=== PATIENT | male | born 1955 | race Caucasian/White ===

== ENCOUNTER 2016-03-17 19:26 | Inpatient (IN) | payer OTHER ==
[2016-03-17] VITALS (176 sets, daily range): BP systolic 118; BP diastolic 68; PULSE 66; TEMP 97; O2SAT 98–100
[~2016-03-17 19:26] MED LIST: B-1100 MG PO; CEPHALEXIN500 M1 PO; FOLIC ACID 11 MG/TA1 PO; THERAGRAN1 TA1 PO
[2016-03-17 21:17] LABS: PH 6 (5-8); SQUAMOUS EPITHELIAL None Seen /hpf; URINE APPEARANCE Clear; URINE BACTERIA None Seen /hpf; URINE BILIRUBIN Negative (NEGATIVE); URINE BLOOD Negative (NEGATIVE); URINE COLOR Straw; URINE GLUCOSE Negative (NEGATIVE); URINE KETONE Trace (NEGATIVE); URINE RBC 0-2 /hpf; URINE UROBILINOGEN Negative (NEGATIVE); URINE WBC 0-2 /hpf
[2016-03-17 21:17] LABS: ARTERIAL BLD GAS O2 SATURATION 98.6 % (92-100); ARTERIAL BLD GAS TCO2 CT 20.5; ARTERIAL BLOOD GAS BASE EXCESS -7.4 (-2-2); ARTERIAL BLOOD GAS HCO3 19.2 meq/L (22-26); ARTERIAL BLOOD GAS PHT 7.27 C (7.35-7.45); ARTERIAL BLOOD GAS pH 7.27 (7.35-7.45); OXYHEMOGLOBIN 97.6 %
[2016-03-17 21:19] LABS: ALLEN TEST NO; ARTERIAL BLOOD GAS PO2 153.8 mmHg (80-100); ARTERIAL BLOOD GAS PO2T 153.8 (80-100); ATS? YES
[2016-03-17 23:15] LABS: ARTERIAL BLD GAS O2 SATURATION 98.9 % (92-100); ARTERIAL BLD GAS TCO2 CT 15.7; ARTERIAL BLOOD GAS BASE EXCESS -8.2 (-2-2); ARTERIAL BLOOD GAS HCO3 14.9 meq/L (22-26); ARTERIAL BLOOD GAS PHT 7.39 C (7.35-7.45); ARTERIAL BLOOD GAS pH 7.39 (7.35-7.45)
[2016-03-17 23:17] LABS: ALLEN TEST NO; ARTERIAL BLOOD GAS PO2 194.6 mmHg (80-100); ARTERIAL BLOOD GAS PO2T 194.6 (80-100); ATS? YES
[2016-03-18] VITALS (744 sets, daily range): BP systolic 82–138; BP diastolic 43–76; PULSE 61–104; TEMP 97–100.1; O2SAT 91–100
[2016-03-18 04:40] LABS: ARTERIAL BLD GAS O2 SATURATION 98.3 % (92-100); ARTERIAL BLD GAS TCO2 CT 13.7; ARTERIAL BLOOD GAS BASE EXCESS -12.8 (-2-2); ARTERIAL BLOOD GAS HCO3 12.7 meq/L (22-26); ARTERIAL BLOOD GAS PHT 7.26 C (7.35-7.45); ARTERIAL BLOOD GAS pH 7.26 (7.35-7.45); OXYHEMOGLOBIN 97.5 %
[2016-03-18 04:42] LABS: ALLEN TEST NO; ATS? YES
[2016-03-18 08:30] LABS: BASO % 0.8 % (0.0-2.0); EOS % 0.2 % (0-4.0); GRAN # 3.7 (1.4-6.5); GRAN % 75.4 % (42.2-75.2); HEMATOCRIT 42.3 % (42.0-52.0); HEMOGLOBIN 13.8 g/dl (13.5-18.0); LYMPH # 0.8 (1.2-3.4); LYMPH % 16.3 % (20.0-51.0); MEAN CELL VOLUME 88 fl (80.0-100.0); MEAN CORPUSCULAR HEMOGLOBIN 29 pg (27.0-31.0); MEAN CORPUSCULAR HGB CONC 33 g/dl (33.0-37.0); MONO # 0.4 (0.1-0.6); MONO % 7.1 % (1.7-9.3); PLATELET COUNT 140 K/mm3 (130-400); RED BLOOD COUNT 4.79 M/mm3 (4.20-5.60); REDCELL DISTRIBUTION WIDTH-CV 12.8 % (11.5-14.5); WHITE BLOOD COUNT 4.9 K/mm3 (4.8-10.8)
[2016-03-18 08:38] LABS: ADJUSTED CALCIUM 9.1 mg/dL (8.4-10.2); ALBUMIN 3.1 gm/dL (3.5-5.0); BILIRUBIN,TOTAL 0.7 mg/dL (0.0-1.0); CALCIUM 8.4 mg/dL (8.4-10.2); CREATININE, serum 0.8 mg/dL (0.66-1.25); MAGNESIUM 1.6 mg/dL (1.6-2.3); PHOSPHOROUS 4.1 mg/dL (2.5-4.5); POTASSIUM 3.8 mmol/L (3.4-5.0); TOTAL PROTEIN 5.7 gm/dL (6.4-8.2)
[2016-03-18 11:31] LABS: THYROID STIMULATING HORMONE 0.026 uIU/mL (0.465-4.680)
[2016-03-18 11:31] LABS: CALCIUM 8.4 mg/dL (8.4-10.2); CREATININE, serum 0.8 mg/dL (0.66-1.25); POTASSIUM 4.4 mmol/L (3.4-5.0)
[2016-03-18] MEDS ORDERED: AMBIEN 5MG TABLE5 MG PO (15:08)
[2016-03-18] MEDS ORDERED: LAMICTAL CD25 MG PO (15:09)
[2016-03-18] MEDS ORDERED: MINIPRESS 1M1 MG/CAP PO (15:10)
[2016-03-18] MEDS ORDERED: KLONOPIN 1MG1 MG PO (15:11)
[2016-03-18] MEDS ORDERED: SYNTHROID0.1 MG/TAB PO (15:12)
[2016-03-19 03:46] VITALS: BP 133/61; PULSE 90; TEMP 99.5
[2016-03-19 06:52] LABS: BASO % 0.6 % (0.0-2.0); EOS # 0.1 (0.0-0.7); EOS % 2.7 % (0-4.0); GRAN # 3.1 (1.4-6.5); GRAN % 64.3 % (42.2-75.2); HEMATOCRIT 37.4 % (42.0-52.0); HEMOGLOBIN 12.5 g/dl (13.5-18.0); LYMPH % 21.1 % (20.0-51.0); MEAN CELL VOLUME 87 fl (80.0-100.0); MEAN CORPUSCULAR HEMOGLOBIN 29 pg (27.0-31.0); MEAN CORPUSCULAR HGB CONC 33 g/dl (33.0-37.0); MEAN PLATELET VOLUME 11.5 fl (7.4-10.4); MONO # 0.5 (0.1-0.6); MONO % 11.1 % (1.7-9.3); PLATELET COUNT 117 K/mm3 (130-400); RED BLOOD COUNT 4.28 M/mm3 (4.20-5.60); WHITE BLOOD COUNT 4.8 K/mm3 (4.8-10.8)
[2016-03-19 06:53] LABS: ADJUSTED CALCIUM 9.4 mg/dL (8.4-10.2); ALBUMIN 2.9 gm/dL (3.5-5.0); BILIRUBIN,TOTAL 1.2 mg/dL (0.0-1.0); CALCIUM 8.5 mg/dL (8.4-10.2); CREATININE, serum 0.88 mg/dL (0.66-1.25); MAGNESIUM 1.8 mg/dL (1.6-2.3); PHOSPHOROUS 2.1 mg/dL (2.5-4.5); POTASSIUM 3.1 mmol/L (3.4-5.0); TOTAL PROTEIN 5.5 gm/dL (6.4-8.2)
[2016-03-19 07:47] VITALS: BP 136/69; PULSE 78; TEMP 98.9
[2016-03-19] MEDS ORDERED: LIBRIUM 10M10 MG/CAP PO (11:08)
[2016-03-19] MEDS ORDERED: KLONOPIN 1MG1 MG PO (11:10)
[2016-03-19 12:11] VITALS: BP 131/73; PULSE 79; TEMP 97.8
== END 2016-03-19 13:00 | disposition home or self-care (01) | DRG 918 ==
LOC: ICU 19:26 → MEDICAL 20:19
PROVIDERS: Internal Medicine; Nurse Practitioner Family
PROC: 5A1935Z Respiratory Ventilation, Less than 24 Consecutive Hours (ICD-10-PCS; principal; 2016-03-17)
PROC: 05H533Z Insertion of Infusion Device into Right Subclavian Vein, Percutaneous Approach (ICD-10-PCS; 2016-03-17)
DX: T42.4X1A Poisoning by benzodiazepines, accidental (unintentional), initial encounter (principal); F10.239 Alcohol dependence with withdrawal, unspecified; E44.0 Moderate protein-calorie malnutrition; E87.2 Acidosis; T42.6X1A Poisoning by other antiepileptic and sedative-hypnotic drugs, accidental (unintentional), initial encounter; E03.9 Hypothyroidism, unspecified; F10.229 Alcohol dependence with intoxication, unspecified; Y90.8 Blood alcohol level of 240 mg/100 ml or more; E83.39 Other disorders of phosphorus metabolism; E87.6 Hypokalemia; I95.9 Hypotension, unspecified; E86.0 Dehydration
CPT/HCPCS: 90791-AI; 99223-AI; 99239; J1650; J2704; J3010; J7120